=== PATIENT | male | born 1960 | race Caucasian/White ===

== ENCOUNTER 2019-07-11 01:16 | Observation (INO) | payer MEDICAID ==
[~2019-07-11] VITALS: Ht 180.3 cm; Wt 100.0 kg
[2019-07-11] MEDS ORDERED: acetaminophen 325mg tablet PO PRN ×2 (03:30)
[2019-07-11] MEDS ORDERED: magnesium hydroxide 30ml (MOM) UD suspension PO PRN (03:30)
[2019-07-11] MEDS ORDERED: bisacodyl 10mg suppository rectal RC PRN (03:30)
[2019-07-11] MEDS ORDERED: magnesium 4gm in 100ml NS 100 ML IV PRN (03:30)
[2019-07-11] MEDS ORDERED: ondansetron/PF 4mg/2ml inj IV PRN (03:30)
[2019-07-11] MEDS ORDERED: magnesium Cl slow-release 64mg tablet PO PRN (03:30)
[2019-07-11] MEDS ORDERED: potassium CL 10mEq/100ml bag 100 ML IV PRN ×2 (03:30)
[2019-07-11] MEDS ORDERED: metoclopramide 5 mg/ml inj IV PRN (03:30)
[2019-07-11] MEDS ORDERED: diphenhydrAMINE 50 mg/ml inj IV PRN (03:30)
[2019-07-11] MEDS ORDERED: diphenhydrAMINE 25mg capsule PO PRN (03:30)
[2019-07-11] MEDS ORDERED: magnesium 2GM in 50ml NS 50 ML IV PRN (03:30)
[2019-07-11] MEDS ORDERED: potassium Cl 20 mEq SR tablet PO PRN ×2 (03:30)
[2019-07-11] MEDS ORDERED: mag hydrox/Alum hydrox/simeth 30ml oral suspension PO PRN (03:30)
[2019-07-11] MEDS ORDERED: SYN0.088T PO (03:48)
[2019-07-11] MEDS ORDERED: ASPI-1265 PO (03:48)
[2019-07-11] MEDS ORDERED: CHOL100046 PO ×2 (03:48→13:19)
[2019-07-11] MEDS ORDERED: LEVE10002 PO (03:48)
[2019-07-11] MEDS ORDERED: CYAN-51 PO (03:48)
[2019-07-11] MEDS ORDERED: ATOR40TA7 PO (03:48)
[2019-07-11] MEDS ORDERED: DIL50T PO (03:50)
[2019-07-11 03:52] LABS: BASOPHILS % (AUTO) 0.4 % (0-1); EOSINOPHILS % (AUTO) 0 % (0-6); HEMATOCRIT 33.7 % (42.0-52.0); HEMOGLOBIN 11.7 g/dl (14.0-17.9); LYMPHOCYTES # (AUTO) 1.6 X10'3 (1.1-4.8); LYMPHOCYTES % (AUTO) 24.4 % (21-51); MEAN CORPUSCULAR HEMOGLOBIN 32.7 PG (27.0-31.0); MEAN CORPUSCULAR HGB CONC 34.7 g/dL (33.0-36.5); MEAN CORPUSCULAR VOLUME 94.4 FL (78-98); MEAN PLATELET VOLUME 7.4 FL (7.4-10.4); MONOCYTES # (AUTO) 0.3 X10'3 (0-0.9); MONOCYTES % (AUTO) 5.1 % (2-12); NEUTROPHILS # (AUTO) 4.5 X10'3 (1.8-7.7); NEUTROPHILS % (AUTO) 70.1 % (42-75); PLATELET COUNT 220 X10'3 (140-440); RED BLOOD COUNT 3.57 X10'6 (4.70-6.10); RED CELL DISTRIBUTION WIDTH 13.5 % (11.5-14.5); WHITE BLOOD COUNT 6.5 X10'3 (4.5-11.0)
[2019-07-11 03:58] LABS: PARTIAL THROMBOPLASTIN TIME 27 SECONDS (22-32)
[2019-07-11 04:07] LABS: ALANINE AMINOTRANSFERASE 26 U/L (12-78); ALBUMIN/GLOBULIN RATIO 0.9 (1.1-1.5); ALKALINE PHOSPHATASE 86 IU/L (46-116); ANION GAP 9 (8-16); ASPARTATE AMINO TRANSFERASE 22 U/L (10-37); BILIRUBIN,TOTAL 0.2 MG/DL (0.1-1.0); BLOOD UREA NITROGEN 9 MG/DL (7-18); BUN/CREATININE RATIO 10.7 (5.4-32.0); CHLORIDE 111 MMOL/L (99-107); CHOL/HDL RATIO 1.8 (0.00-4.99); CHOLESTEROL 112 MG/DL (0-200); CREATININE 0.84 MG/DL (0.60-1.10); GLUCOSE 89 MG/DL (70-104); HDL CHOLESTEROL 63 MG/DL (35-60); LDL CHOLESTEROL 43 MG/DL (50-100); MAGNESIUM 1.6 MG/DL (1.5-2.4); PHOSPHORUS 2.5 MG/DL (2.3-4.5); POTASSIUM 3.5 MMOL/L (3.5-5.1); SODIUM 144 MMOL/L (135-145); TOTAL CARBON DIOXIDE 24.5 MMOL/L (24-32); TOTAL PROTEIN 6.5 G/DL (6.4-8.2); TRIGLYCERIDES 29 MG/DL (20-135); eGFR > 90 ML/MIN
--- NOTE | 2019-07-11 04:15 | NUR ---
Received report from Renee BARNES in the ER. Pt arrived on the floor with VSS, and 2 daughters at bedside. Pt showed no signs of distress, will continue to monitor.
[2019-07-11 04:28] LABS: HEMOGLOBIN A1C 5.4 % (4.5-6.2)
[2019-07-11] MEDS: normal saline 1000ml 1,000 ML IV SCH ×2 (05:04→05:29)
[2019-07-11 05:33] VITALS: BP 143/89
--- NOTE | 2019-07-11 06:05 | NUR ---
Problems reprioritized. Patient report given, questions answered & plan of care reviewed with Florecita BARNES.
--- NOTE | 2019-07-11 06:21 | NUR ---
received report from yancy beltran
[2019-07-11] MEDS ORDERED: levoTHYROXINE 100mcg tablet PO SCH (07:00)
[2019-07-11] MEDS ORDERED: atorvastatin 20mg tablet PO SCH (08:00)
[2019-07-11] MEDS ORDERED: K and/or MAG REPLACEMENT MC SCH (08:00)
[2019-07-11] MEDS ORDERED: levetiracetam 250mg tablet PO SCH (08:00)
[2019-07-11] MEDS ORDERED: aspirin 325mg tablet PO SCH (08:30)
[2019-07-11 10:00] VITALS: BP 134/94
--- NOTE | 2019-07-11 13:00 | NUR ---
Tele neuro exam with Dr Murphy after verbal consent obtained.
[2019-07-11] MEDS ORDERED: LEVO100T9 PO (13:19)
[2019-07-11] MEDS ORDERED: PHEN100C12 PO ×2 (13:19→14:38)
--- NOTE | 2019-07-11 15:16 | NUR ---
pt d/c with instructions, understanding of instructions and w/all belongings in wheelchair accompanied by daughter to private vehicle to go home and f/u w/pcp
[2019-07-11] MEDS ORDERED: temazepam 15mg capsule PO PRN (21:00)
[2019-07-13 06:11] LABS: PROTEIN S, FREE 93 % (57-157); PROTEIN S, TOTAL 72 % (60-150)
[2019-07-13 11:11] LABS: ANTITHROMBIN ACTIVITY 107 % (75-135); ANTITHROMBIN ANTIGEN 99 % (72-124)
== END 2019-07-11 15:15 | disposition home or self-care (01) ==
LOC: ER 01:17 → ORTHO 4S 03:28
PROVIDERS: ADMIT Family Medicine; ATTEND Family Medicine
DX: R41.82 Altered mental status, unspecified (principal); D64.9 Anemia, unspecified; G40.909 Epilepsy, unspecified, not intractable, without status epilepticus; E83.51 Hypocalcemia; I10 Essential (primary) hypertension; R47.01 Aphasia; E03.9 Hypothyroidism, unspecified; E78.5 Hyperlipidemia, unspecified; G93.40 Encephalopathy, unspecified; Z86.73 Personal history of transient ischemic attack (TIA), and cerebral infarction without residual deficits; Z79.82 Long term (current) use of aspirin; Z79.899 Other long term (current) drug therapy
CPT/HCPCS: 36415; 70544; 70547; 70551; 80053; 80061; 81479; 83036; 83605; 83735; 83891; 83894; 83898; 84100; 84443; 85025; 85240; 85300; 85301; 85303; 85305; 85306; 85610; 85730; 86147; 87040; 87081; 92508; 92616; 93306; 93880; 96360; 96361; 97116; 97161; 97530; 99284; G0378; J7030